=== PATIENT | male | born 1955 | race Caucasian/White ===

== ENCOUNTER 2016-11-16 14:42 | Emergency (ER) | payer OTHER ==
[2016-11-16 14:44] VITALS: BP 145/89; PULSE 101; RESP 16; TEMP 98.2; O2SAT 98
--- NOTE | 2016-11-16 15:14 | PD ---
HPI . 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 Patient actually hit his face with his surfboard and has an obvious deformity of his nose. He tells me that initially there was blood, however that has now subsided. He is not in any discomfort at rest. He reports if he tries to take a deep breath that he has 4/10 pain without any radiation elsewhere. He denies any head injury or loss of consciousness. PFSH Past Medical History Hx Anticoagulant Therapy: Yes (XARELTO) Social History Alcohol Use: No Tobacco Use: No Substance Use: No Allergies-Medications (Allergen,Severity, Reaction): Coded Allergies: No Known Allergies (Unverified , 11/16/16) Reported Meds & Prescriptions Reported Meds & Active Scripts Active Reported Xarelto (Rivaroxaban) 20 Mg Tab 20 Mg PO DAILY Review of Systems General / Constitutional: No: Fever Eyes: No: Visual changes HENT: Positive: Other (nose fracture ), No: Headaches Cardiovascular: No: Chest Pain or Discomfort Respiratory: No: Shortness of Breath Gastrointestinal: No: Abdominal Pain Genitourinary: No: Dysuria Musculoskeletal: No: Pain Skin: No Rash Neurologic: No: Weakness Psychiatric: No: Depression Endocrine: No: Polydipsia Hematologic/Lymphatic: No: Easy Bruising Physical Exam Narrative GENERAL: AAO x 3, no acute distress, Well-nourished, well-developed patient. SKIN: Warm and dry. No visible rashes or bruising. Obvious nasal fracture without bleeding. HEAD: Normocephalic and atraumatic. EYES: No scleral icterus. No injection or drainage. EOM intact, PERRLA ENT: No nasal drainage noted. Mucous membranes pink. Airway patent. Obvious nasal fracture without bleeding. Airway is intact. There is no blood on examination of nasal turbinates. NECK: Supple, trachea midline. No JVD. CARDIOVASCULAR: Regular rate and rhythm without murmurs, gallops, or rubs. RESPIRATORY: Breath sounds equal bilaterally. No accessory muscle use. No rhonchi or rales. GASTROINTESTINAL: Visual inspection normal EXTREMITIES: No cyanosis or edema. BACK: Nontender without obvious deformity. No CVA tenderness. NEURO: CN II-12 intact, political advisor strength normal b/l, UE and LE 5/5, no focal deficits PSYCH: AAO x 3, normal affect. Data Data Last Documented VS Vital Signs Date Time Temp Pulse Resp B/P Pulse Ox O2 Delivery O2 Flow Rate FiO2 11/16/16 14:44 98.2 101 16 145/[address] Brain W/O Iv Contrast(Rout) (11/16/16 15:19) MDM Medical Decision Making Medical Screen Exam Complete: Yes Emergency Medical Condition: Yes Medical Record Reviewed: Yes Differential Diagnosis Nasal fracture, less likely orbital fracture, possible brain bleed, Narrative Course 61-year-old male here with complaints of a nose fracture after he accidentally hit his face with a surfboard. He is on anticoagulation for history of DVT. With being on Xarelto he is at high risk of bleed even with slight trauma. I explained this to the patient. I recommend CT scan of the brain to rule out any type of acute bleed. Initially patient had consented and then somehow along the course of his visit he has decided that he does not want a CT scan. He request papers to sign out AMA. He tells me he knows there is nothing wrong with his head. I explained to him that we will not touch his nose as there is a chance of re- bleeding and the risks outweigh benefits. I advised him that I would refer him to maxillofacial surgeon. He still chooses to sign out AMA. I've advised him that he will need to follow-up with maxillofacial surgeons to have his nose fracture corrected and treated. Diagnosis Primary Impression: Left against medical advice Additional Impression: Nose fracture Qualified Code: S02.2XXA - Closed fracture of nasal bone, initial encounter Condition: Stable [place] Nov 16, 2016 15:14
[2016-11-16] MEDS ORDERED: XARE20TA PO (15:16)
== END 2016-11-16 17:00 | disposition left against medical advice (07) ==
LOC: NEPC 14:42
DX: S02.2XXA Fracture of nasal bones, initial encounter for closed fracture (principal); W22.8XXA Striking against or struck by other objects, initial encounter
CPT/HCPCS: 99281